=== PATIENT | female | born 1965 | race Asian ===

== ENCOUNTER 2017-08-15 13:11 | Emergency (ER) | payer MEDICAID ==
[~2017-08-15] VITALS: Ht 152.4 cm; Wt 42.2 kg
[2017-08-15 13:58] LABS: Basophils # (auto) 0.1 uL; Basophils % (auto) 0.9 % (0.0-2.0); Eosinophils # (auto) 0.3 uL; Eosinophils % (auto) 4.3 % (0.0-7.0); Hematocrit 44.5 % (36.0-46.0); Hemoglobin 14.9 g/dL (12.2-16.2); Lymphocytes # (auto) 2.5 uL; Lymphocytes % (auto) 40.6 % (10.0-50.0); Mean Corpuscular Hemoglobin 28.9 pg (28.0-32.0); Mean Corpuscular Hgb Conc. 33.5 g/dL (32.0-36.0); Mean Corpuscular Volume 86.2 fL (80.0-100.0); Monocytes % (auto) 15.6 % (0.0-12.0); Neutrophils # (auto) 2.4 uL; Neutrophils % (auto) 38.6 % (37.0-80.0); Nucleated Red Blood Cells % 0.1 %; Platelet Count (auto) 259 10^3/uL (140-450); Red Blood Cells 5.17 10^6/uL (4.0-5.20); Red Cell Distribution Width 12.8 % (11.8-14.3); White Blood Cell 6.2 10^3/uL (4.4-10.8)
[2017-08-15 14:27] LABS: Alanine Aminotransferase 102 U/L (13-56); Albumin 3.6 g/dL (3.4-5.0); Alkaline Phosphatase 168 U/L (45-117); Anion Gap 5 (5-15); Aspartate Aminotransferase 60 U/L (15-37); BUN/Creatinine Ratio 32.4; Bilirubin, Total 0.4 mg/dL (0.2-1.0); Blood Urea Nitrogen 22 mg/dL (7-18); Carbon Dioxide 29 mmol/L (21-32); Chloride 105 mmol/L (98-107); GFR African American 116 mL/min; GFR Non-African American 96 mL/min; Glucose 130 mg/dL (74-106); Magnesium 2.4 mg/dL (1.6-2.6); Potassium 4.4 mmol/L (3.5-5.1); Sodium 139 mmol/L (136-145); Total Protein 7.9 g/dL (6.4-8.2)
[2017-08-15] MEDS: IOHEXOL 300 MG/ML 100ML BOTTLE IJ ONE (17:52)
[2017-08-15 20:50] VITALS: BP 116/69
== END 2017-08-15 20:51 | disposition home or self-care (01) ==
LOC: ER 13:11
DX: F41.9 Anxiety disorder, unspecified (principal); R74.8 Abnormal levels of other serum enzymes; R91.8 Other nonspecific abnormal finding of lung field; Z88.8 Allergy status to other drugs, medicaments and biological substances
CPT/HCPCS: 36415; 71045; 80053; 83735; 84443; 84484; 85025; 85379; 93005

== ENCOUNTER 2022-01-24 12:57 | Emergency (ER) | payer MEDICAID ==
[~2022-01-24] VITALS: Ht 152.4 cm; Wt 49.0 kg
[2022-01-24 14:56] VITALS: BP 129/86
[2022-01-24] MEDS ORDERED: ACET-1080 PO (16:10)
[2022-01-24] MEDS ORDERED: BACDST PO (16:10)
== END 2022-01-24 16:28 | disposition home or self-care (01) ==
LOC: ER 12:57
DX: N75.1 Abscess of Bartholin's gland (principal); E03.9 Hypothyroidism, unspecified; Z90.89 Acquired absence of other organs; Z79.899 Other long term (current) drug therapy; Z88.8 Allergy status to other drugs, medicaments and biological substances; Z88.5 Allergy status to narcotic agent
CPT/HCPCS: 56420

== ENCOUNTER 2022-01-27 17:51 | Emergency (ER) | payer MEDICAID ==
[~2022-01-27] VITALS: Ht 152.4 cm; Wt 50.0 kg
[~2022-01-27 17:51] MED LIST: ACET-1080 PO; BACDST PO
[2022-01-27 19:36] VITALS: BP 132/84
[2022-01-27] MEDS ORDERED: CLIN-188 PO (22:37)
== END 2022-01-27 19:36 | disposition home or self-care (01) ==
LOC: ER 17:51
DX: Z48.817 Encounter for surgical aftercare following surgery on the skin and subcutaneous tissue (principal); Z88.6 Allergy status to analgesic agent; Z88.8 Allergy status to other drugs, medicaments and biological substances

== ENCOUNTER 2024-09-02 14:54 | Emergency (ER) | payer MEDICAID ==
[~2024-09-02] VITALS: Ht 152.4 cm; Wt 40.5 kg
[~2024-09-02 14:54] MED LIST changes: +CLIN-188 PO
--- NOTE | 2024-09-02 15:22 | ED.PDOC ---
HPI Comments 59 year old female brought in by daughter presents to the ED with chief complaint of chest pain. Patient reports that she has been experiencing right sided chest pain since February 2024 with associated SOB, cough, and radiation of pain to her back. Patient relays that she contacted her PCP earlier this year regarding the concern and a lab order was barely sent over yesterday for her. Patient states she is pending a CT chest with contrast, but the labs needed to be performed first. Patient notes inhaling worsens pain. Patient reports that she wants to know what has been causing her pain. Patient denies any dizziness, fever, chills, headache, N/V/D, or abdominal pain. Patient does state that she has some pulmonary concern that sounds like it could be cancer. Vital signs were stable at arrival. Chief Complaint: Chest Pain Time Seen by MD: 15:17 Primary Care Provider: EDILBERTO Reviewed Notes: Nurses Notes, Medications, Allergies Allergies: Coded Allergies: Acetaminophen (Verified Allergy, 09/09/11) Alprazolam (Verified Allergy, 09/16/11) Cephalexin (Verified Allergy, 05/20/13) Fluticasone (Verified Allergy, 09/09/11) Hydrocodone (Verified Allergy, 09/09/11) Morphine (Verified Allergy, 09/09/11) Uncoded Allergies: HYDROXIZINE (Allergy, 09/09/11) PCN (Allergy, 09/09/11) Home Meds Active Scripts Clindamycin HCl (Clindamycin Hydrochloride) 150 Mg Cap, 150 MG PO TID for 5 Days, #15 CAP 0 Refills Prov:EVELIO MORSE 01/27/22 Acetaminophen (Tylenol 8 Hour Arthritis) 650 Mg Tab, 650 MG PO TID, #20 TAB Prov:GALEN SHORT 01/24/22 Sulfamethoxazole W/Trimethopri (Bactrim Ds Tablet) 1 Tab Tb, 1 TAB PO BID for 10 Days, #20 TAB Prov:GALEN SHORT 01/24/22 Information Source: Patient, Relative (Daughter) Mode of Arrival: Ambulatory Severity: Mild Timing: Months Duration: Since onset Prehospital treatment: None Location: Chest (R), Chest (L) Radiation: Back Quality: Aching Onset: At Rest Cardiac Risk Factors: None PE Risk Factors: None History of: None Past Medical History PAST MEDICAL HISTORY: Thyroid Past Medical History (Other): Patient may be suffering from cancer concerns Surgical History: , 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 Hx Family History Family History: Reviewed,noncontributory to illness Social History Smoker: Non-Smoker Alcohol: Denies ETOH Use Drugs: Denies Drug Use Lives In: Home Constitutional: denies: chills, diaphoresis, fatigue, fever, malaise, sweats, weakness, others EENTM: denies: blurred vision, double vision, ear bleeding, ear discharge, ear drainage, ear pain, ear ringing, eye pain, eye redness, hearing loss, mouth pain, mouth swelling, nasal discharge, nose bleeding, nose congestion, nose pain, photophobia, tearing, throat pain, throat swelling, voice changes, others Respiratory: reports: shortness of breath; denies: cough, hemoptysis, orthopnea, SOB at rest, SOB with excertion, stridor, wheezing, others Cardiovascular: reports: chest pain; denies: dizzy spells, diaphoresis, Dyspnea on exertion, edema, irregular heart beat, left arm pain, lightheadedness, pal pitations, PND, syncope, others Gastrointestinal: denies: abdomen distended, abdominal pain, blood streaked bowels, constipated, diarrhea, dysphagia, difficulty swallowing, hematemesis, melena, nausea, poor appetite, poor fluid intake, rectal bleeding, rectal pain, vomiting, others Genitourinary: denies: abnormal vagina bleeding, burning, dyspareunia, dysuria, flank pain, frequency, hematuria, incontinence, pain, , vagina discharge, urgency, others Neurological: denies: dizziness, fainting, headache, left sided numbness, left sided weakness, numbness, paresthesia, pre-existing deficit, right sided numbness, right sided weakness, seizure, speech problems, tingling, tremors, weakness, others Musculoskeletal: denies: back pain, gout, joint pain, joint swelling, muscle pain, muscle stiffness, neck pain, others Integumetry: denies: bruises, change in color, change in hair/nails, dryness, laceration, lesions, lumps, rash, wounds, others Allergic/Immunocompromised: denies: Difficulty Healing, Frequent Infections, Hives, Itching, others Hematologic/Lymphatic: denies: anemia, blood clots, easy bleeding, easy b ruising, swollen glands, others Endocrine: denies: excessive hunger, excessive sweating, excessive thirst, excessive urination, flushing, intolerance to cold, intolerance to heat, unexplained weight gain, unexplained weight loss, others Psychiatric: denies: anxiety, bipolar disorder, depression, hopeless, panic disorder, schizophrenia, sleepless, suicidal, others All Other Systems: Reviewed and Negative Physical Exam General Appearance: Moderate Distress ([id number] distress due to chest pain concerns.), Normal HEENT: Normal ENT Inspection, Pharynx Normal, TMs Normal Neck: Full Range of Motion, Non-Tender, Normal, Normal Inspection Respiratory: Lungs Clear, No Accessory Muscle Use, No Respiratory Distress, Normal Breath Sounds, Other (Unable to elicit any additional pain on palpation. Patient did have some left breast pain concerns. No signs of trauma. No pulsatile masses.) Cardiovascular: No Edema, No JVD, No Murmur, No Gallop, Normal Peripheral Pulses, Regular Rate/Rhythm Breast Exam: Other (Diffuse left breast pain that may be intrapulmonary and musculoskeletal in nature. No signs of trauma. No masses noted.) Gastrointestinal: No Organomegaly, Non Tender, No Pulsatile Mass, Normal Bowel Sounds, Soft Genitalia: Deferred Pelvic: Deferred Rectal: Deferred Extremities: No calf tenderness, Normal capillary refill, Normal inspection, Normal range of motion, Non-tender, No pedal edema Neurologic: Alert, No Motor Deficits, Normal Affect, Normal Mood, No Sensory Deficits Cerebellar Function: Normal Reflexes: Normal Skin: Dry, Normal Color, Warm Lymphatic: No Adenopathy Was a procedure done? Was a procedure done?: No CP Differential Dx Differential Diagnosis: Anxiety / Panic Attack, Atrial Dysrhythmia, AV Block 1st Degree, PR, Other (Pulmonary neoplasm) Differential Diagnosis: CHF Differential Diagnosis: Angina, Chest Wall Pain, Costochondritis, Myocardial Infarction X-Ray, Labs, Meds, VS Vital Signs Date Time Temp Pulse Resp B/P (MAP) Pulse Ox O2 Delivery O2 Flow Rate FiO2 09/02/24 16:28 97.5 65 17 124/68 (86) 99 97.5 09/02/24 16:28 65 17 99 Room Air 09/02/24 15:31 65 09/02/24 15:24 98.0 68 16 124/79 (94) 97 98.0 Lab Test 09/02/24 16:37 09/02/24 15:35 Range/Units Troponin I High Sensitivity < 3 L < 3 L </=34 ng/L White Blood Count 8.1 4.4-10.8 10^3/uL Red Blood Count 4.58 4.0-5.20 10^6/uL Hemoglobin 14.3 12.2-16.2 g/dL Hematocrit 41.9 36.0-46.0 % Mean Corpuscular Volume 91.5 80.0-100.0 fL Mean Corpuscular Hemoglobin 31.3 28.0-32.0 pg Mean Corpuscular Hemoglobin Concent 34.2 32.0-36.0 g/dL Red Cell Distribution Width 12.8 11.8-14.3 % Platelet Count 339 140-450 10^3/uL Mean Platelet Volume 6.0 L 6.9-10.8 fL Neutrophils (%) (Auto) 58.9 37.0-80.0 % Lymphocytes (%) (Auto) 25.0 10.0-50.0 % Monocytes (%) (Auto) 10.1 0.0-12.0 % Eosinophils (%) (Auto) 5.0 0.0-7.0 % Basophils (%) (Auto) 1.0 0.0-2.0 % Neutrophils # (Auto) 4.8 1.6-8.6 10 ^3/uL Lymphocytes # (Auto) 2.0 0.4-5.4 10 ^3/uL Monocytes # (Auto) 0.8 0-1.3 10 ^3/uL Eosinophils # (Auto) 0.4 0-0.8 10 ^3/uL Basophils # (Auto) 0.1 0-0.2 10 ^3/uL Nucleated Red Blood Cells 0.0 % Sodium Level 131 L 136-145 mmol/L Potassium Level 3.8 3.5-5.1 mmol/L Chloride Level 99 98-107 mmol/L Carbon Dioxide Level 25 20-31 mmol/L Anion Gap 7 5-15 Blood Urea Nitrogen 9 9-23 mg/dL Creatinine 0.71 0.550-1.02 mg/dL Glomerular Filtration Rate Calc 97 >90 mL/min BUN/Creatinine Ratio 12.7 10.0-20.0 Serum Glucose 99 74-106 mg/dL Lactic Acid Level 0.5 0.4-2.0 mmol/L Calcium Level 9.6 8.7-10.4 mg/dL Total Bilirubin 0.7 0.2-1.0 mg/dL Aspartate Amino Transferase (AST) 25 13-40 U/L Alanine Aminotransferase (ALT) 15 7-40 U/L Alkaline Phosphatase 146 H 46-116 U/L Total Protein 7.5 5.7-8.2 g/dL Albumin 4.4 3.2-4.8 g/dL X-Ray, Labs, Meds, VS Comment All studies performed the ED were evaluated by me personally. EKG reveals sinus rhythm with a rate of 65. Borderline right axis deviation was noted. RI interval of 160 and QT interval 411. Serum studies were unremarkable for any systemic concerns. CT with contrast of chest was unremarkable for any pulmonary emboli, aneurysm or dissection. Numerous right pulmonary nodule throughout less lows were noted flipped seem to favor malignancy. Moderate right pleural effusion which favored malignancy. The large mediastinal nose which favored malignancy L2 vertebral body sclerosis which may be metastatic in nature. Patient has been advised to follow up with her primary care provider for continued evaluation and Oncology for referral. Time of 1ST Reevaluation: 18:42 Reevaluation 1ST: Improved Consultation: PCP, Pulmonary, Other (Oncology) Patient Education/Counseling: Diagnosis, Treatment Family Education/Counseling: Diagnosis, Treatment Departure 1 Departure Time of Disposition: 18:43 Impression: Primary Impression: Pulmonary malignant neoplasm Disposition: HOME / SELF CARE / HOMELESS Condition: Stable Additional Instructions: Advised patient utilize pain medication as needed and additionally, patient will need to follow up with primary care provider for Cardiology evaluation as it appears the patient may have metastatic concerns. e-Prescriptions Ibuprofen Micronized (Ibuprofen) 400 Mg Tab 400 MG PO Q4HP PRN, #30 TAB Prov: MANJEET ALY PAC 09/02/24 Hydrocodone-Acetaminophen (Hydrocodone Bitartrate/AC 5-325 mg) 1 Tab Tab 1 TAB PO Q6HP PRN, #20 TAB Prov: MANJEET ALY PAC 09/02/24 Discharged With: Self, Relative Critical Care Note Critical Care Time?: No Stability Stability form required: No Heart Score Heart Score: Heart Score Response (Comments) Value History Slightly Suspicious 0 EKG Normal 0 Age 45-64 1 Risk Factors 1 or 2 risk factors 1 Troponin Normal limit 0 Total 2 I personally scribed for MANJEET ALY PAC ([email or web address]) on 09/02/24 at 15:22. Electronically submitted by Darrell Carias ([email or web address]). MANJEET ALY PAC Sep 02, 2024 15:22
[2024-09-02 15:50] LABS: Basophils # (auto) 0.1 10 ^3/uL (0-0.2); Eosinophils # (auto) 0.4 10 ^3/uL (0-0.8); Hematocrit 41.9 % (36.0-46.0); Hemoglobin 14.3 g/dL (12.2-16.2); Mean Corpuscular Hemoglobin 31.3 pg (28.0-32.0); Mean Corpuscular Hgb Conc. 34.2 g/dL (32.0-36.0); Mean Corpuscular Volume 91.5 fL (80.0-100.0); Monocytes # (auto) 0.8 10 ^3/uL (0-1.3); Monocytes % (auto) 10.1 % (0.0-12.0); Neutrophils # (auto) 4.8 10 ^3/uL (1.6-8.6); Neutrophils % (auto) 58.9 % (37.0-80.0); Platelet Count (auto) 339 10^3/uL (140-450); Red Blood Cells 4.58 10^6/uL (4.0-5.20); Red Cell Distribution Width 12.8 % (11.8-14.3); White Blood Cell 8.1 10^3/uL (4.4-10.8)
[2024-09-02 16:05] LABS: Alanine Aminotransferase 15 U/L (7-40); Albumin 4.4 g/dL (3.2-4.8); Anion Gap 7 (5-15); Aspartate Aminotransferase 25 U/L (13-40); BUN/Creatinine Ratio 12.7 (10.0-20.0); Calcium 9.6 mg/dL (8.7-10.4); Carbon Dioxide 25 mmol/L (20-31); Chloride 99 mmol/L (98-107); Glucose 99 mg/dL (74-106); Potassium 3.8 mmol/L (3.5-5.1); Total Protein 7.5 g/dL (5.7-8.2)
[2024-09-02 16:06] LABS: Alkaline Phosphatase 146 U/L (46-116); Bilirubin, Total 0.7 mg/dL (0.2-1.0); Blood Urea Nitrogen 9 mg/dL (9-23); Sodium 131 mmol/L (136-145)
[2024-09-02] MEDS: NITROGLYCERIN 0.4 MG SL TAB SL ONE (16:28)
[2024-09-02] MEDS: IOHEXOL 350 MG/ML 100ML IJ ONE (16:48)
--- NOTE | 2024-09-02 17:24 | DVH ---
EXAM: CT CT ANGIO CHEST CONTRAST History: Chest pain. Possible pulmonary mass Comparison Study: None TECHNIQUE: A digital training representative image was obtained. During the uneventful, intravenous administration of c ontrast material, multislice data acquisition was obtained through the chest. 3-D postprocessing is performed by technologist including MIP imaging Radiation Dose : CTDI vol 11.84 mGy, DLP 156.67 mGy*cm. Findings: Lungs: Numerous pulmonary nodules throughout both lungs. The largest measures 2.8 x 3.7 cm in the ri ght lower lobe. Pleura: Moderate right pleural effusion. Heart/Great vessels: No cardiomegaly or pericardial effusion. No pulmonary embolism, aneurysm, or dis section. Mediastinum: Enlarged mediastinal nodes. For example 2.2 x 2.3 cm subcarinal node. Soft tissues/Bones: Mild multilevel degenerative changes of the thoracic spine. Sclerosis of L2 verte bral body. The partially visualized upper abdomen is within normal limits. Impression: 1. No evidence of a pulmonary embolism, aneurysm, or dissection. 2. Numerous pulmonary nodules throughout both lungs, the largest measures 3.7 cm in the right lower l obe favored to reflect malignancy. 3. Moderate right pleural effusion favored malignant. 4. Enlarged mediastinal nodes favored metastatic. 5. L2 vertebral body sclerosis. Can not exclude a metastatic lesion. 6. Recommend PET-CT for further evaluation as clinically indicated.
[2024-09-02] MEDS ORDERED: IBUP1TAB4 PO (18:45)
[2024-09-02] MEDS ORDERED: HYDR-4902 PO (18:45)
[2024-09-02 19:47] VITALS: BP 131/65; TEMP 98
[2024-09-02 19:52] VITALS: PULSE 61; RESP 18; O2SAT 97
--- NOTE | 2024-09-05 10:45 | ECG ---
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
== END 2024-09-02 19:56 | disposition home or self-care (01) ==
LOC: ER 14:54
DX: C34.90 Malignant neoplasm of unspecified part of unspecified bronchus or lung (principal); Z90.89 Acquired absence of other organs; Z88.5 Allergy status to narcotic agent; Z88.1 Allergy status to other antibiotic agents
CPT/HCPCS: 36415; 71275; 80053; 83605; 84484; 85025; 93005; 99285; Q9967